=== PATIENT | female | born 1960 | race American Indian/Alaskan Native ===

== ENCOUNTER 2019-01-20 12:53 | Emergency (ER) | payer MEDICAID ==
--- NOTE | 2019-01-20 13:21 | Event Note ---
ED Screening Note Date of service: 01/20/19 Time: 13:16 ED Screening Note: This is a 58 y.o. F. that presents to the ER s/p fall. Patient states she was at [place] and loss balance. She reports hitting her head on landing and couldn't control bleeding from laceration to left eyebrow. Patient report a brain cyst and speech is always slurred. Denies weakness, change in speech This initial assessment/diagnostic orders/clinical plan/treatment(s) is/are subject to change based on patients health status, clinical progression and re- assessment by fellow clinical providers in the ED. Further treatment and workup at subsequent clinical providers discretion. Patient/guardian urged not to elope from the ED as their condition may be serious if not clinically assessed and managed. Initial orders include: EKG, CT of head, and labs
[2019-01-20 14:25] LABS: Basophils # (Auto) 0.1 K/mm3 (0.0-0.1); Basophils % (Auto) 0.9 % (0.0-1.8); Eosinophils # (Auto) 0.1 K/mm3 (0.0-0.4); Eosinophils % (Auto) 1.2 % (0.0-4.3); Hematocrit 39.7 % (30.3-42.9); Hemoglobin 13.3 gm/dl (10.1-14.3); Lymphocytes # (Auto) 1.7 K/mm3 (1.2-5.4); Lymphocytes % (Auto) 26.4 % (13.4-35.0); Mean Corpuscular HGB Conc 34 % (30-34); Mean Corpuscular Volume 92 fl (79-97); Monocytes # (Auto) 0.6 K/mm3 (0.0-0.8); Monocytes % (Auto) 8.8 % (0.0-7.3); Platelet Count 294 K/mm3 (140-440); Red Blood Count 4.31 M/mm3 (3.65-5.03); Red Cell Distribution Width 13.8 % (13.2-15.2)
--- NOTE | 2019-01-20 14:48 | Cat Scan Report ---
CT head without contrast Coronal history: Syncope, fall, history of brain mass. FINDINGS: No previous exams are available for comparison. There is irregularity and edema involving t he left frontal scalp compatible with laceration and patient's history of trauma. However, there is n o clear CT evidence of acute intracranial hemorrhage or significant mass effect. There is a small focus of calcification within the left basal ganglia. Otherwise, the brain appears t o demonstrate appropriate attenuation. There is no CT evidence of acute intracranial hemorrhage or si gnificant mass effect. There is advanced cerebellar atrophy which is clearly out of proportion to the volume of the cerebrum . Furthermore, there is thickening of the calvarium and the combination of findings may be seen with long-term antibiotic seizure medication; correlation be needed in this patient with history of unspec ified "brain mass" and any previous outside imaging. Cerebellar atrophy may also be seen on an heredi tary basis or related to ethanol toxicity. The visualized nasal sinuses are clear. All CT scans at th is location are performed using the CT dose reduction for ALARA by means of automated exposure contro l. IMPRESSION: There is edema involving the left frontal scalp. However, there is no CT evidence of acute intracrani al hemorrhage. There is advanced cerebellar atrophy as detailed above. Signer Name: Olivier Rivera MD Signed: 01/20/2019 2:44 PM Workstation Name: [id number]
[2019-01-20 14:50] LABS: Alanine Aminotransferase 15 units/L (7-56); Albumin 4.2 g/dL (3.9-5); BUN/Creatinine Ratio 24; Blood Urea Nitrogen 17 mg/dL (7-17); Calcium 9.5 mg/dL (8.4-10.2); Hemolysis Index 5
[2019-01-20] MEDS ORDERED: XYLOCAINE 1% 20 mL ONE (14:58)
[2019-01-20] MEDS ORDERED: BOOSTRIX IM ONE (15:16)
--- NOTE | 2019-01-20 15:20 | Emergency Department Report ---
ED General Adult HPI - General Chief complaint: Fall Stated complaint: FALL/HEAD INJURY Time Seen by Provider: 01/20/19 13:15 Source: patient Mode of arrival: Ambulatory Limitations: No Limitations - History of Present Illness Initial comments: This is a 58 year old female that missed stepped on a curb coming out of a shopping store today. This was a mechanical fall with no precipitant. She injured her forehead. She did not lose consciousness. She does not pain of neck or back pain. She did abrade her left elbow and bruised her left knee. She does not complain of headache nor nausea or history of vomiting. -: hour(s) Location: head, left, upper extremity Radiation: non-radiation Quality: burning Consistency: intermittent Improves with: none Worsens with: none Associated Symptoms: denies other symptoms Treatments Prior to Arrival: none - Related Data Allergies Allergy/AdvReac Type Severity Reaction Status Date / Time No Known Allergies Allergy Verified 01/20/19 14:58 ED Review of Systems ROS: Stated complaint: FALL/HEAD INJURY Other details as noted in HPI Constitutional: denies: chills, fever Eyes: denies: eye pain, eye discharge, vision change ENT: denies: ear pain, throat pain Respiratory: denies: cough, shortness of breath, wheezing Cardiovascular: denies: chest pain, palpitations Endocrine: no symptoms reported Gastrointestinal: denies: abdominal pain, nausea, diarrhea Genitourinary: denies: urgency, dysuria, discharge Musculoskeletal: denies: back pain, joint swelling, arthralgia Skin: denies: rash, lesions Neurological: denies: headache, weakness, paresthesias Psychiatric: denies: anxiety, depression Hematological/Lymphatic: denies: easy bleeding, easy bruising ED Past Medical Hx - Past Medical History Hx Hypertension: Yes Additional medical history: HIGH CHOLESTEROL. RAMA CYST - Surgical History Past Surgical History?: No - Social History Smoking Status: Never Smoker Substance Use Type: Prescribed ED Physical Exam - General Limitations: No Limitations General appearance: alert, in no apparent distress - Head Head exam: Present: atraumatic, normocephalic - Eye Eye exam: Absent: normal appearance (stellate laceration of the left eyebrow with avulsion of hair, 3 cm length into the subcutaneous), scleral icterus - ENT ENT exam: Present: mucous membranes moist - Neck Neck exam: Present: normal inspection, full ROM. Absent: tenderness, meningismus - Respiratory Respiratory exam: Present: normal lung sounds bilaterally. Absent: respiratory distress - Cardiovascular Cardiovascular Exam: Present: regular rate, normal rhythm. Absent: systolic murmur, diastolic murmur, rubs, gallop - GI/Abdominal GI/Abdominal exam: Present: soft, normal bowel sounds. Absent: distended, tenderness - Extremities Exam Extremities exam: Present: normal capillary refill, other (abrasion left elbow, no deformity, no tenderness, free range of motion) - Back Exam Back exam: Present: normal inspection - Neurological Exam Neurological exam: Present: alert, oriented X3, CN II-XII intact. Absent: motor sensory deficit - Psychiatric Psychiatric exam: Present: normal mood, flat affect - Skin Skin exam: Present: warm, dry, intact, normal color. Absent: rash ED Course Vital Signs 01/20/19 01/20/19 13:15 14:09 Temperature 98.5 F Pulse Rate 95 H 96 H Respiratory 18 18 Rate Blood Pressure 144/96 Blood Pressure 136/86 [Left] O2 Sat by Pulse 96 98 Oximetry - Laceration /Wound Repair Left Face Wound Location: face Wound's Depth, Shape: superficial Wound Explored: avulsed Betadine Prep?: Yes Anesthesia: 1% Lidocaine Suture Size/Type: 5:0 Number of Sutures: 4 Layer Closure?: No Sterile Dressing Applied?: No ED Medical Decision Making - Lab Data Result diagrams: 01/20/19 13:51 01/20/19 13:51 Laboratory Results - last 24 hr 01/20/19 01/20/19 13:51 13:51 WBC 6.4 RBC 4.31 Hgb 13.3 Hct 39.7 MCV 92 MCH 31 MCHC 34 RDW 13.8 Plt Count 294 Lymph % (Auto) 26.4 [place] % (Auto) 8.8 H Eos % (Auto) 1.2 Baso % (Auto) 0.9 Lymph # 1.7 Otero # 0.6 Eos # 0.1 Baso # 0.1 Seg Neutrophils % 62.7 Seg Neutrophils # 4.0 Sodium 141 Potassium 3.4 L Chloride 101.4 Carbon Dioxide 27 Anion Gap 16 BUN 17 Creatinine 0.7 Estimated GFR > 60 BUN/Creatinine Ratio 24 Glucose 108 H Calcium 9.5 Total Bilirubin 0.80 AST 19 ALT 15 Alkaline Phosphatase 92 Total Protein 7.3 Albumin 4.2 Albumin/Globulin Ratio 1.4 - Radiology Data interpreted by me: There is advanced cerebellar atrophy which is clearly out of proportion to the volume of the cerebrum. Furthermore, there is thickening of the calvarium and the combination of findings may be seen with long-term antibiotic seizure medication; correlation be needed in this patient with history of unspecified "brain mass" and any previous outside imaging. Cerebellar atrophy may also be seen on an hereditary basis or related to ethanol toxicity. The visualized nasal sinuses are clear. All CT scans at this location are performed using the CT dose reduction for [employer] (SDI) by means of automated exposure control. No acute process Critical care attestation.: If time is entered above; I have spent that time in minutes in the direct care of this critically ill patient, excluding procedure time. ED Disposition Clinical Impression: Laceration of eyebrow, left Qualifiers: Encounter type: initial encounter Qualified Code(s): S01.112A - Laceration without foreign body of left eyelid and periocular area, initial encounter Abrasion of elbow, left Qualifiers: Encounter type: initial encounter Qualified Code(s): S50.312A - Abrasion of left elbow, initial encounter Contusion of left knee Qualifiers: Encounter type: initial encounter Qualified Code(s): S80.02XA - Contusion of left knee, initial encounter Disposition: - TO HOME OR SELFCARE Is pt being admited?: No Does the pt Need Aspirin: No Condition: Stable Instructions: Minor Head Injury (ED), Laceration (ED), Suture Care (ED), Abrasion (ED), Contusion in Adults (ED) Additional Instructions: Rest affected areas. Follow instructions. Suture removal in one week. Time of Disposition: 15:24
[2019-01-20 15:51] VITALS: BP 131/84
== END 2019-01-20 15:55 | disposition home or self-care (01) ==
LOC: ED 12:53
DX: S01.112A Laceration without foreign body of left eyelid and periocular area, initial encounter (principal); S80.02XA Contusion of left knee, initial encounter; S50.312A Abrasion of left elbow, initial encounter; I10 Essential (primary) hypertension; E78.00 Pure hypercholesterolemia, unspecified; W17.89XA Other fall from one level to another, initial encounter; Y93.89 Activity, other specified; Y92.89 Other specified places as the place of occurrence of the external cause; Y99.8 Other external cause status
CPT/HCPCS: 36415; 70450; 80053; 85025; 90471; 90715; 93005; 93010